=== PATIENT | female | born 1935 | race African-American/Black ===

== ENCOUNTER 2019-05-10 20:16 | Observation (INO) | payer BC, MEDICARE, OTHER ==
[2019-05-10 21:14] LABS: #Eosinphils 0.2 thou/uL (0.0-0.7); #Lymphocytes 1.2 thou/uL (1.20-3.40); #Monocytes 0.4 thou/uL (0.11-0.59); #Neutrophils 2.7 thou/uL (1.40-6.50); %Basophils 0.5 % (0.0-1.0); %Lymphocytes 26.3 % (21.0-51.0); %Monocytes 9.5 % (0.0-10.0); %Neutrophils 59.7 % (42.0-75.0); Hemoglobin 11.2 g/dL (12.0-16.0); Mean Corpuscular HGB CONC 33.1 g/dL (32.0-36.0); Mean Corpuscular Hemoglobin 32.5 pg (27.0-31.0); Mean Platelet Volume 7.4 fL (7.4-10.4); Platelet Count 244 thou/uL (130-400); RBC Distribution Width 11.3 % (11.5-14.5); Red Blood Cell (RBC) Count 3.46 mill/uL (4.20-5.40); White Blood Cell (WBC) Count 4.6 thou/uL (4.8-10.8)
[2019-05-10 21:17] LABS: Bilirubin Negative (Negative); Blood, Urine Negative (Negative); Clarity CLOUDY (Clear); Glucose, Urine (Dipstick) Negative (Negative); Leukocyte Moderate (Negative); Nitrite Negative (Negative); Protein, Urine (Dipstick) Negative (Neg-Trace); Specific Gravity, Urine 1.009 (1.002-1.036); Urobilinogen 0.2 mg/dL (0.2-1.0); pH, Urine 5.5 (5.0-9.0)
[2019-05-10 21:19] LABS: Bacteria/HPF 1+ HPF (None Seen); Hyaline Casts/LPF 4-6 HYALINE CAST LPF (0-3 Hyaline); Pathc Cast-AUWi Flag 1.22 (0-2.49); RBC/HPF 0-3 HPF (0-3); Squamous Epithelial 0-3 HPF (0-3); WBC/HPF 21-50 HPF (0-3)
--- NOTE | 2019-05-10 21:26 | RAD ---
PORTABLE CHEST: 05/10/19 HISTORY: Dyspnea. COMPARISON: 08/23/03 study. Heart size is enlarged. There are atherosclerotic changes of the aorta. There is some subsegmental at electatic changes in the lung bases. IMPRESSION: Cardiomegaly with subsegmental atelectasis in the lung bases. POS: [facility]
[2019-05-10 21:33] LABS: ALT (SGPT) 13 U/L (8-55); AST (SGOT) 20 U/L (5-34); Albumin 4.1 g/dL (3.4-4.8); Alkaline Phosphatase 64 U/L (40-150); Anion Gap 17 mmol/L (10-20); BUN (Urea Nitrogen) 44 mg/dL (9.8-20.1); Bilirubin, Total 0.4 mg/dL (0.2-1.2); CK (CPK) 234 U/L (29-168); Calc. Creatinine Clearance 0 mL/min (70-130); Calcium 9.2 mg/dL (7.8-10.44); Carbon Dioxide 14 mmol/L (23-31); Chloride 105 mmol/L (98-107); Estimated GFR-MDRD 30; Globulin 3.3 g/dL (2.4-3.5); Glucose 111 mg/dL (83-110); Potassium 5.1 mmol/L (3.5-5.1); Protein, Total 7.4 g/dL (6.0-8.3); Sodium 131 mmol/L (136-145)
[2019-05-10] MEDS ORDERED: cefTRIAXone\\ROCEPHIN 1 GM VIAL ONE (22:23)
[2019-05-10] MEDS ORDERED: Sodium Chloride 0.9% 100 ML ONE (22:23)
[2019-05-11 00:25] VITALS: BMI 24.0
[2019-05-11] MEDS ORDERED: Sodium Chloride 0.9% 1,000 ML IV SCH (00:27)
[2019-05-11] MEDS ORDERED: Senokot S 8.6-50 MG TAB PO PRN (00:47)
[2019-05-11] MEDS ORDERED: Acetaminophen 325 MG TAB PO PRN (00:47)
[2019-05-11] MEDS ORDERED: Ondansetron PF 4 MG/2 ML Vial IVP PRN (00:47)
[2019-05-11] MEDS ORDERED: Acetaminophen 650 MG Suppository PR PRN (00:47)
[2019-05-11] MEDS ORDERED: Ondansetron ODT 4 MG TAB PO PRN (00:47)
[2019-05-11] MEDS: Sodium Chloride 0.9% 1,000 ML IV SCH ×2 (01:30→18:16)
--- NOTE | 2019-05-11 01:59 | HP ---
REASON FOR ADMISSION: Shortness of breath. HISTORY OF PRESENT ILLNESS: Ms. Escamilla is a pleasant 83-year-old woman who was brought into the emergency department by her son, whom she lives with, after she had an episode of shortness of breath while lying down. Per her son, this episode lasted 15 minutes and she was clutching out her throat as if she could not catch her breath. He states this similar episode has happened in recent days in which she had a sudden episode of difficulty breathing followed by a syncopal episode. The patient and son report recurrent episodes of bronchitis. She has been prescribed an inhaler in the past; however, she has run out of this. She has noted an occasional cough that has been dry. The patient also denies any productive cough or hemoptysis. The patient and son deny any chest pain. There is limited ability to obtain history from the patient due to underlying dementia. At this present time, however, she does state she feels "fair and is without any complaints". REVIEW OF SYSTEMS: Recently, she has been eating and drinking as normal without any nausea or vomiting. No complaints of abdominal pain or cramping. She has been moving her bowels as normal without any constipation or diarrhea. No urinary symptoms. No headaches or dizziness. No gait disturbances. No lower leg swelling or calf pain. All other review of systems are negative. PAST MEDICAL HISTORY: 1. Dementia. 2. Hypertension. 3. Hyperlipidemia. 4. Anxiety. 5. Depression. PAST SURGICAL HISTORY: None. SOCIAL HISTORY: The patient denies any tobacco use, alcohol use, or illicit drug use. She lives with her son. ALLERGIES: NO KNOWN DRUG ALLERGIES. CURRENT MEDICATIONS: 1. Losartan/HCTZ. 2. Donepezil. 3. Nifedipine. 4. Hydralazine. 5. Mucinex. PHYSICAL EXAMINATION: GENERAL: The patient appears well developed, well nourished, in no acute distress. VITAL SIGNS: Temperature 98, pulse 69, respirations 24, O2 saturation 100% on room air, blood pressure 133/60. HEENT: Normocephalic and atraumatic. Pupils are equal, round, and reactive to light. Extraocular movements intact. Oropharynx is clear. NECK: Supple. LUNGS: Reduced breath sounds at bilateral bases. No wheezes, rales, or rhonchi. CARDIAC: Regular rate and rhythm. ABDOMEN: Soft, nontender, and nondistended. Normoactive bowel sounds present. EXTREMITIES: No lower leg swelling or edema. NEUROLOGIC: Alert and oriented x3. No neuro deficits. The patient is pleasantly demented and able to answer some questions appropriately, able to follow commands. SKIN: Without rash or jaundice. LABORATORY DATA: White blood count 4.6, hemoglobin 11.2, hematocrit 33.9, platelets 244. Sodium 131, potassium 5.1, BUN 44, creatinine 1.83, GFR 30, glucose 111, calcium 9.2, total bilirubin 0.4, AST 20, ALT 13, and alkaline phosphatase 64. CK 234. Troponin negative x1. BNP 60.2. Albumin 4.1. Urinalysis notable for moderate leukocyte esterase, 21 to 50 white blood cells, 1+ bacteria, hyaline casts 4 to 6. IMAGING DATA: Chest x-ray, 05/10/2019, heart size is enlarged, atherosclerotic changes of aorta, subsegmental atelectatic changes at the lung bases. IMPRESSION AND PLAN: Ms. Escamilla is a very pleasant 83-year-old woman with known dementia and recurrent issues with bronchitis, admitted for management of the followin. Shortness of breath. The patient apparently had an episode lasting for 15 minutes in which she could not catch her breath. Similar episode in the past resulting in syncope. Son states that this happened in recent days. She has not been particularly short of breath with exertion. However, given syncopal episode, we will have to proceed with appropriate workup for syncope. We have requested an echo. BNP is normal. Chest x-ray read did show cardiomegaly. No signs of fluid overload. I will also obtain carotid Dopplers and orthostatic BPs. 2. Recurrent bronchitis. The patient is without any wheezing at present, but per ED report, she did have wheezing on presentation. She was given IV antibiotics. She has been afebrile with no white count and nonproductive occasional cough. We will hold on any further antibiotics and continue to monitor. I have added on a lactic acid. I have also requested a D-dimer. We will continue nebs. 3. Urinary tract infection. Urinalysis notable for leukocyte esterase, bacteria, and white blood cells. Urine culture requested. We will continue Omnicef for urinary tract infection. Adjust antibiotics pending all culture and sensitivity results. 4. Gastrointestinal prophylaxis. 5. Deep venous thrombosis prophylaxis with mechanical sequential compression devices. Walking program requested. 6. Code status, full. Her surrogate decision maker is her son, Chet Escamilla. The patient's case was discussed with Dr. Gifford who agrees with plan of care as described above. Job ID: [id number]
[2019-05-11 05:26] LABS: #Eosinphils 0.1 thou/uL (0.0-0.7); #Lymphocytes 0.8 thou/uL (1.20-3.40); #Monocytes 0.3 thou/uL (0.11-0.59); #Neutrophils 3.9 thou/uL (1.40-6.50); %Basophils 0.1 % (0.0-1.0); %Eosinophils 1.6 % (0.0-10.0); %Lymphocytes 15.8 % (21.0-51.0); %Monocytes 6.5 % (0.0-10.0); Hemoglobin 9.4 g/dL (12.0-16.0); Mean Corpuscular HGB CONC 32.6 g/dL (32.0-36.0); Mean Corpuscular Volume 98.1 fL (78.0-98.0); Mean Platelet Volume 7.8 fL (7.4-10.4); Platelet Count 222 thou/uL (130-400); RBC Distribution Width 11.4 % (11.5-14.5); Red Blood Cell (RBC) Count 2.93 mill/uL (4.20-5.40); White Blood Cell (WBC) Count 5.2 thou/uL (4.8-10.8)
[2019-05-11 05:44] LABS: Anion Gap 14 mmol/L (10-20); BUN (Urea Nitrogen) 42 mg/dL (9.8-20.1); Calc. Creatinine Clearance 28 mL/min (70-130); Calcium 8.8 mg/dL (7.8-10.44); Carbon Dioxide 18 mmol/L (23-31); Chloride 107 mmol/L (98-107); Estimated GFR-MDRD 36; Glucose 127 mg/dL (83-110); Potassium 4.6 mmol/L (3.5-5.1); Sodium 134 mmol/L (136-145)
[2019-05-11] MEDS ORDERED: Zolpidem Tartrate 5 MG TAB PO PRN (06:52)
[2019-05-11] MEDS ORDERED: Sodium Chloride 0.65% Nasal 44 ML BOT EA NARE PRN (06:52)
[2019-05-11] MEDS ORDERED: Diabetic Tussin 200 MG/10 ML UDCUP PO PRN (06:52)
[2019-05-11] MEDS ORDERED: Cepastat Lozenges 1 LOZ PO PRN (06:52)
[2019-05-11] MEDS ORDERED: Artificial Tear Sol 15 ML BOT EA EYE PRN (06:52)
[2019-05-11] MEDS ORDERED: Bisacodyl 10 MG SUPP PR PRN (06:52)
[2019-05-11] MEDS ORDERED: hydrALAZINE 20 MG/ML VIAL SLOW IVP PRN (06:52)
[2019-05-11] MEDS ORDERED: Loperamide HCl 2 MG CAP PO PRN (06:52)
[2019-05-11] MEDS ORDERED: Loratadine 10 MG TAB PO PRN (06:52)
[2019-05-11] MEDS ORDERED: Bisacodyl 5 MG TAB PO PRN (06:52)
[2019-05-11] MEDS: Cefdinir 300 MG CAP PO SCH ×2 (09:27→20:56)
[2019-05-11] MEDS: Famotidine/PF 20 mg/2ml Vial SLOW IVP SCH (09:27)
--- NOTE | 2019-05-11 09:56 | PDOC.PN ---
- Subjective Encounter Start Date: 05/11/19 Encounter Start Time: 07:10 Patient seen and examined. No new complaints. No overnight events - Objective Resuscitation Status - Order Detail: 05/11/19 00:47 Resuscitation Status Routine Co-Sign Provider: Resuscitation Status: FULL: Full Resuscitation MAR Reviewed: Yes Vital Signs & Weight: Vital Signs (12 hours) Temp Pulse Resp BP BP BP Pulse Ox 05/11/19 07:42 97.9 F 61 14 127/60 96 05/11/19 07:02 60 14 05/11/19 04:10 97.5 F L 60 18 149/65 H 97 05/11/19 01:50 77 167/70 H 05/11/19 01:49 65 152/72 H 05/11/19 01:48 60 156/68 H 05/11/19 00:10 98.0 F 63 16 161/67 H 95 Weight Weight 148 lb 14.4 oz I&O: 05/10/19 05/11/19 05/12/19 06:59 06:59 06:59 Intake Total 425 2 Balance 425 2 Result Diagrams: 05/11/19 04:18 05/11/19 04:18 EKG Reviewed by me: Yes Phys Exam - Physical Examination Constitutional: NAD HEENT: PERRLA, moist MMs, sclera anicteric Neck: no JVD, supple Respiratory: no wheezing, no rales, no rhonchi Cardiovascular: RRR, no significant murmur, no rub Gastrointestinal: soft, non-tender, no distention, positive bowel sounds Musculoskeletal: no edema, pulses present Neurological: non-focal, normal sensation Lymphatic: no nodes Psychiatric: normal affect, A&O x 3 Skin: no rash, normal turgor Dx/Plan (1) Acute bronchitis Code(s): J20.9 - ACUTE BRONCHITIS, UNSPECIFIED Status: Acute (2) Dyspnea Code(s): R06.00 - DYSPNEA, UNSPECIFIED Status: Acute (3) Elevated d-dimer Code(s): R79.89 - OTHER SPECIFIED ABNORMAL FINDINGS OF BLOOD CHEMISTRY Status : Acute (4) UTI (urinary tract infection) Status: Acute (5) Anxiety and depression Code(s): F41.9 - ANXIETY DISORDER, UNSPECIFIED; F32.9 - MAJOR DEPRESSIVE DISORDER, SINGLE EPISODE, UNSPECIFIED Status: Chronic (6) CKD (chronic kidney disease) stage 3, GFR 30-59 ml/min Code(s): N18.3 - CHRONIC KIDNEY DISEASE, STAGE 3 (MODERATE) Status: Chronic (7) Dementia Code(s): F03.90 - UNSPECIFIED DEMENTIA WITHOUT BEHAVIORAL DISTURBANCE Status: Chronic (8) Dyslipidemia Code(s): E78.5 - HYPERLIPIDEMIA, UNSPECIFIED Status: Chronic (9) Hypertension Code(s): I10 - ESSENTIAL (PRIMARY) HYPERTENSION Status: Chronic - Plan cont current plan of care, continue antibiotics * today echo, carotid * will get V/Q scan for elevated D-dimer * medication reviewed as below * symptomatic treatment. Review of Systems - Review of Systems ENT: negative: Ear Pain, Ear Discharge, Nose Pain, Nose Discharge, Nose Congestion, Mouth Pain, Mouth Swelling, Throat Pain, Throat Swelling, Other Respiratory: negative: Cough, Dry, Shortness of Breath, Hemoptysis, SOB with Excertion, Pleuritic Pain, Sputum, Wheezing Cardiovascular: negative: chest pain, palpitations, orthopnea, paroxysmal nocturnal dyspnea, edema, light headedness, other Gastrointestinal: negative: Nausea, Vomiting, Abdominal Pain, Diarrhea, Constipation, Melena, Hematochezia, Other Genitourinary: negative: Dysuria, Frequency, Incontinence, Hematuria, Retention , Other Musculoskeletal: negative: Neck Pain, Shoulder Pain, Arm Pain, Back Pain, Hand Pain, Leg Pain, Foot Pain, Other Skin: negative: Rash, Lesions, Roger, Bruising, Other - Medications/Allergies Allergies/Adverse Reactions: Allergies Allergy/AdvReac Type Severity Reaction Status Date / Time No Known Drug Allergies Allergy Verified 05/11/19 04:57 Medications: Current Medications Acetaminophen (Tylenol) 650 mg PO Q4H PRN PRN Reason: Headache/Fever/Mild Pain (1-3) Acetaminophen (Tylenol) 650 mg [place] Q4H PRN PRN Reason: Headache/Fever/Mild Pain (1-3) Albuterol/Ipratropium (Duoneb) 3 ml NEB [id number] [place] Last Admin: 05/11/19 07:02 Dose: 3 ml Artificial Tears (Liquitears 15ml Bottle) 2 drop EA EYE PRN PRN PRN Reason: Dry Eyes Bisacodyl (Dulcolax) 10 mg PO DAILYPRN PRN PRN Reason: Constipation Bisacodyl (Dulcolax) 10 mg [place] DAILYPRN PRN PRN Reason: Constipation Cefdinir (Omnicef) 300 mg PO BID [facility] Last Admin: 05/11/19 09:27 Dose: 300 mg Famotidine (Pepcid) 20 mg SLOW IVP QAM [facility] Last Admin: 05/11/19 09:27 Dose: 20 mg Guaifenesin (Robitussin Sf) 200 mg PO Q4H PRN PRN Reason: Cough Hydralazine HCl (Apresoline) 10 mg SLOW IVP Q4H PRN PRN Reason: SBP > 180 and HR < 70 Sodium Chloride (Normal Saline 0.9%) 1,000 mls @ 65 mls/hr IV .[id number] [facility] Last Admin: 05/11/19 01:30 Dose: Not Given Loperamide HCl (Imodium) 2 mg PO PRN PRN PRN Reason: Diarrhea/Loose Stools Loratadine (Claritin) 10 mg PO DAILYPRN PRN PRN Reason: Sinus Symptoms Ondansetron HCl (Zofran Odt) 4 mg PO Q6H PRN PRN Reason: Nausea/Vomiting Ondansetron HCl (Zofran) 4 mg IVP Q6H PRN PRN Reason: Nausea/Vomiting Senna/Docusate Sodium (Senokot S) 2 tab PO BID PRN PRN Reason: Constipation Sodium Chloride (Flush - Normal Saline) 10 ml IVF Q12HR PRN PRN Reason: Saline Flush Sodium Chloride (Flush - Normal Saline) 10 ml IVF PRN PRN PRN Reason: Saline Flush Sodium Chloride ([place] Nas[place] 0.65%) 0 ml EA NARE QIDPRN PRN PRN Reason: Nasal Congestion Throat Lozenges (Cepastat Lozenges) 1 ulisses PO Q2H PRN PRN Reason: Sore Throat Zolpidem Tartrate (Ambien) 5 mg PO HSPRN PRN PRN Reason: Insomnia
--- NOTE | 2019-05-11 10:28 | ULT ---
BILATERAL CAROTID DUPLEX ULTRASOUND: HISTORY: Syncope TECHNIQUE: Grayscale, color-flow and spectral Doppler ultrasound imaging of the extracranial carotid artery syst ems was performed bilaterally. FINDINGS: Small amount of plaque is seen on either side. The peak systolic velocity in the right ICA measures 68 cm/s with an end-diastolic velocity of 11 cm/ s and a systolic ratio of 0.83. The peak systolic velocity in the left ICA measures 80 cm/s with an end-diastolic velocity of 22 cm/s and a systolic ratio of 1.2. Flow in both vertebral arteries remains antegrade. IMPRESSION: No evidence of hemodynamically significant stenosis.
--- NOTE | 2019-05-11 15:35 | NM ---
RADIONUCLIDE PERFUSION SCAN: HISTORY: Dyspnea, elevated d-dimer TECHNIQUE: A perfusion scan with was performed using intravenous administration of 5.1 mCi technetium 99m-MAA fo r the perfusion scan. CORRELATION: Chest radiograph from 05/10/2019. FINDINGS: Homogeneity is noted in the tracer distribution to the lung smith bilaterally on perfusion scans. No pleural-based, wedge-shaped, segmental or subsegmental perfusion defects are identified. IMPRESSION: Very low probability for pulmonary embolism.
[2019-05-12] MEDS: Sodium Chloride 0.9% 1,000 ML IV SCH (07:08)
[2019-05-12] MEDS: Famotidine/PF 20 mg/2ml Vial SLOW IVP SCH (07:39)
[2019-05-12] MEDS: Cefdinir 300 MG CAP PO SCH (07:39)
[2019-05-12 08:26] VITALS: BP 173/74; TEMP 97.3
[2019-05-12] MEDS ORDERED: hydrALAZINE 25 MG TAB PO SCH (09:00)
--- NOTE | 2019-05-12 11:37 | DIS ---
DATE OF ADMISSION: 05/11/2019 DATE OF DISCHARGE: 05/12/2019 PRIMARY CARE PHYSICIAN: Esa Schneider MD DISCHARGE DISPOSITION: Home. PRIMARY DISCHARGE DIAGNOSES: 1. Acute bronchitis. 2. Dyspnea due to acute bronchitis. 3. Elevated D-dimer, rule out pulmonary embolism. 4. Urinary tract infection. SECONDARY DISCHARGE DIAGNOSES: Moderate mitral regurgitation, moderate aortic regurgitation, hypertension, dyslipidemia, diastolic dysfunction without heart failure, dementia, chronic kidney disease stage 3, anxiety, and depression. PRIMARY PROCEDURE/OPERATION: None. RADIOLOGICAL INVESTIGATION: Chest x-ray, normal. Carotid Doppler, negative. Lung ventilation perfusion scan, normal. Echocardiography showed diastolic dysfunction. SIGNIFICANT LABORATORY DATA: WBC 5.2, hemoglobin 9.4, and platelet 222. D-dimer 1.78. Sodium 134, creatinine 1.67, and lactic acid 2.0. TSH 1.30. LFT normal. Urinalysis suggestive of UTI. DISCHARGE MEDICATIONS: 1. Omnicef 300 mg p.o. b.i.d. for 5 more days. 2. Hydralazine 25 mg p.o. t.i.d. CONTRAINDICATION: None. CODE STATUS: Full code. INPATIENT PLANNING ADVISOR: None. ALLERGIES: NO KNOWN DRUG ALLERGIES. DISCHARGE PLAN: Posthospital, the patient will follow up with primary care physician in one week. HOSPITAL COURSE: An 83-year-old female with above-mentioned medical problem, who was admitted by Shirin Canada, please see her H and P for further details. The patient was having shortness of breath. Her chest x-ray was normal. She had elevated D-dimer that is why we did V/Q scan, which was negative for PE. The patient also had mild acute on chronic kidney insufficiency, that was improved to baseline level with IV fluid. She had lactic acidosis on admission that was also improved. She had urinary tract infection finding based on urinalysis and that is why she was given Omnicef while in the hospital. As her culture was not obtained and she remained afebrile and asymptomatic on discharge, we prescribed Omnicef for another 5 days. Her blood pressure was high and that is why we added hydralazine on her regimen. Rest of medication was continued as per previous. Echocardiography was done during this admission, which showed diastolic dysfunction and [id number] mitral and aortic regurgitation. Ventilation perfusion scan and carotid Doppler came back negative. PHYSICAL EXAMINATION: I have seen and examined the patient at bedside today. VITAL SIGNS: Currently; temperature 97.3, pulse 56, respiratory rate 18, saturation 99% on room air, and blood pressure 144/67. Weight 148 pounds. GENERAL: The patient is currently alert and awake, in no obvious acute distress. HEENT: Normocephalic and atraumatic. LUNGS: Clear to auscultation without any rhonchi or rales. CARDIAC: S1 and S2. Regular without any murmur. ABDOMEN: Soft and benign. EXTREMITIES: No edema. NEUROLOGIC: Nonfocal examination. Overall, the patient is medically stable for discharge today. Plan of care discussed with the patient and her family member at bedside. Job ID: [id number]
--- NOTE | 2019-05-15 11:56 | EKG ---
Test Reason : Blood Pressure : / mmHG Vent. Rate : 067 BPM Atrial Rate : 067 BPM P-R Int : 192 ms QRS Dur : 080 ms QT Int : 430 ms P-R-T Axes : 057 -19 012 degrees QTc Int : 454 ms Normal sinus rhythm Moderate voltage criteria for LVH, may be normal variant Borderline ECG Confirmed by IKE BUSCH, INGA Ngo ([id number]), scientific editor MATT HANNON ([id number]) on 05/15/2019 11:56:11 AM Referred By: Confirmed By:INGA RAMIRES MD
== END 2019-05-12 10:30 | disposition home or self-care (01) ==
LOC: ERS 20:16 → 2SW 05-11 00:20
PROVIDERS: ADMIT Internal Medicine; ATTEND Internal Medicine
DX: J20.9 Acute bronchitis, unspecified (principal); R79.1 Abnormal coagulation profile; N39.0 Urinary tract infection, site not specified; F03.90 Unspecified dementia, unspecified severity, without behavioral disturbance, psychotic disturbance, mood disturbance, and anxiety; E78.5 Hyperlipidemia, unspecified; F41.9 Anxiety disorder, unspecified; F32.9 Major depressive disorder, single episode, unspecified; I12.9 Hypertensive chronic kidney disease with stage 1 through stage 4 chronic kidney disease, or unspecified chronic kidney disease; N18.3 Chronic kidney disease, stage 3 (moderate); I08.0 Rheumatic disorders of both mitral and aortic valves; Z79.899 Other long term (current) drug therapy
CPT/HCPCS: 51701; 71045; 78451; 80048; 80053; 82550; 83605; 83735; 83880; 84443; 84484; 85025 ×2; 85379; 87086; 93005; 93306; 93880; 94640 ×3; 96361 ×2; 96365; 96375; 97116; 97139 ×3; 99285; A9540; A9558; G0378 ×2; 36415; 81003; 81015; A4353; J0696; J3490; J7620; S0028

== ENCOUNTER 2019-09-19 15:00 | Emergency (ER) | payer MEDICARE, BC ==
[2019-09-19 16:02] LABS: #Basophils 0.1 thou/uL (0.0-0.2); #Eosinphils 0.1 thou/uL (0.0-0.7); #Monocytes 0.3 thou/uL (0.11-0.59); #Neutrophils 4.3 thou/uL (1.40-6.50); %Basophils 1.4 % (0.0-1.0); %Eosinophils 1.6 % (0.0-10.0); %Lymphocytes 17.7 % (21.0-51.0); %Monocytes 5.8 % (0.0-10.0); %Neutrophils 73.5 % (42.0-75.0); Hemoglobin 11.8 g/dL (12.0-16.0); Mean Corpuscular HGB CONC 34.4 g/dL (32.0-36.0); Mean Corpuscular Hemoglobin 32.2 pg (27.0-31.0); Mean Corpuscular Volume 93.7 fL (78.0-98.0); Mean Platelet Volume 7.3 fL (7.4-10.4); Platelet Count 292 thou/uL (130-400); RBC Distribution Width 11.8 % (11.5-14.5); Red Blood Cell (RBC) Count 3.66 mill/uL (4.20-5.40); White Blood Cell (WBC) Count 5.8 thou/uL (4.8-10.8)
[2019-09-19 16:21] LABS: Bilirubin Negative (Negative); Blood, Urine Negative (Negative); Clarity Clear (Clear); Glucose, Urine (Dipstick) Normal (Negative); Leukocyte Negative Leu/uL (Negative); Nitrite Negative (Negative); Protein, Urine (Dipstick) Negative (Neg-Trace); Urobilinogen Normal mg/dL (Less than 2)
[2019-09-19 16:22] LABS: ALT (SGPT) 11 U/L (8-55); AST (SGOT) 16 U/L (5-34); Albumin 4.6 g/dL (3.4-4.8); Alkaline Phosphatase 53 U/L (40-110); Anion Gap 16 mmol/L (10-20); BUN (Urea Nitrogen) 22 mg/dL (9.8-20.1); Bilirubin, Total 0.7 mg/dL (0.2-1.2); Calc. Creatinine Clearance 0 mL/min (70-130); Calcium 9.9 mg/dL (7.8-10.44); Carbon Dioxide 20 mmol/L (23-31); Chloride 98 mmol/L (98-107); Estimated GFR-MDRD 40; Globulin 3.3 g/dL (2.4-3.5); Glucose 108 mg/dL (83-110); Potassium 4.2 mmol/L (3.5-5.1); Protein, Total 7.9 g/dL (6.0-8.3); Sodium 130 mmol/L (136-145)
--- NOTE | 2019-09-19 17:17 | RAD ---
PORTABLE CHEST ONE VIEW: Date: 09-19-19 Time: 3:25 p.m. History: Dementia. FINDINGS: Comparison made with exam of 05-12-19. The heart size is prominent but stable. The aorta is tortuous. No focal areas of consolidation, pneum othoraces or pleural effusions are seen. IMPRESSION: No acute process. POS: [facility]
[2019-09-19 19:53] LABS: Lactic Acid 2.1 mmol/L (0.5-2.2)
== END 2019-09-19 20:57 | disposition home or self-care (01) ==
LOC: ERS 15:00
DX: R06.00 Dyspnea, unspecified (principal); F03.90 Unspecified dementia, unspecified severity, without behavioral disturbance, psychotic disturbance, mood disturbance, and anxiety; I10 Essential (primary) hypertension; E78.5 Hyperlipidemia, unspecified; F41.9 Anxiety disorder, unspecified; F32.9 Major depressive disorder, single episode, unspecified; Z79.899 Other long term (current) drug therapy
CPT/HCPCS: 36415; 51701; 71045; 80053; 81003; 82140; 83605; 83880; 84484; 85025; 87040; 93005; 96360; 96361